=== PATIENT | male | born 1975 | race Two or more races ===

== ENCOUNTER 2020-08-06 17:06 | Emergency (ER) | payer OTHER ==
--- NOTE | 2020-08-06 17:48 | XRAY Report ---
PROCEDURE: Chest 1 View X-Ray INDICATIONS: Chest Pain TECHNIQUE: One view of the chest was acquired. COMPARISON: None FINDINGS: Surgical changes and devices: None. Lungs and pleura: No pleural effusions or pneumothorax. Lungs are clear. Mediastinum: Mediastinal contours appear normal. Heart size is normal. Bones and chest wall: No suspicious bony lesions. Overlying soft tissues appear unremarkable. IMPRESSION: No evidence acute pulmonary process. Reviewed by: Camilo Kan MD on 08/06/2020 4:47 PM [facility] Approved by: Camilo Kan MD on 08/06/2020 4:47 PM [facility] Station ID: [id number]
[2020-08-06 17:55] LABS: BASOPHILS # (AUTO) 0.1 10^3/uL (0.0-0.1); BASOPHILS % (AUTO) 0.7 %; EOSINOPHILS # (AUTO) 0.3 10^3/uL (0.0-0.7); EOSINOPHILS % (AUTO) 3.5 %; HCT - HEMATOCRIT 46.7 % (42.0-52.0); HGB - HEMOGLOBIN 15.3 g/dL (14.0-18.0); LYMPHOCYTES # (AUTO) 2.8 10^3/uL (1.5-3.5); LYMPHOCYTES % (AUTO) 30.8 %; MEAN CORPUSCULAR HEMOGLOBIN 29.5 pg (27.0-31.0); MEAN CORPUSCULAR HGB CONC 32.8 g/dL (32.0-36.0); MEAN CORPUSCULAR VOLUME 90.2 fL (80.0-94.0); MEAN PLATELET VOLUME 8.3 fL (7.4-11.4); MONOCYTES # (AUTO) 0.8 10^3/uL (0.0-1.0); MONOCYTES % (AUTO) 8.7 %; NEUTROPHILS # (AUTO) 5.1 10^3/uL (1.5-6.6); PLT - PLATELET COUNT 302 10^3/uL (130-450); RED BLOOD COUNT 5.18 10^6/uL (4.70-6.10); WHITE BLOOD COUNT 9.1 x10^3/uL (4.8-10.8)
[2020-08-06] MEDS ORDERED: KETOROLAC 60 MG/2 ML VIAL IM STA (18:10)
[2020-08-06 18:25] LABS: ALBUMIN 4.3 g/dL (3.2-5.5); ALBUMIN/GLOBULIN RATIO 1.4 (1.0-2.2); BILIRUBIN,TOTAL 0.9 mg/dL (0.2-1.0); CALCIUM 9.1 mg/dL (8.5-10.3); POTASSIUM 4.2 mmol/L (3.5-5.0); TOTAL PROTEIN 7.3 g/dL (6.7-8.2)
--- NOTE | 2020-08-06 18:28 | ED Physician Documentation ---
PD HPI CHEST PAIN - Stated complaint Stated Complaint: CP - Chief complaint Chief Complaint: Cardiac - History obtained from History obtained from: Patient - History of Present Illness Timing - onset: Yesterday Timing - onset during: Rest Quality: Sharp, Pain Location: Right chest Radiation: No: Jaw, Neck, Back, Abdominal, Left upper extremity, Right upper extremity Improved by: Rest Worsened by: Inspiration, Movement, Palpation Associated symptoms: No: Shortness of air, Diaphoresis, Nausea, Vomiting, Feeling faint / dizzy, General Weakness, Palpitations, Cough Recently seen: Not recently seen - Additional information Additional information: 45-year-old male presents to the emergency department with right-sided anterior chest wall pain. Described as sharp, worse with movement, palpation, breathing. He states that it started after a garbage bin struck him in the back at work. He states he was pushing a cart as well. Took Motrin without relief. No difficulty breathing. No recent surgery. No history of blood clots. No recent travel or immobilization. No history of acute coronary syndrome. No fevers. No chills. Review of Systems Ten Systems: 10 systems reviewed and negative Constitutional: denies: Fever, Chills Nose: denies: Rhinorrhea / runny nose, Congestion Throat: denies: Sore throat Respiratory: denies: Cough GI: denies: Nausea, Vomiting, Diarrhea : denies: Dysuria, Frequency, Hesitancy Skin: denies: Rash Musculoskeletal: denies: Neck pain, Back pain Neurologic: denies: Headache PD PAST MEDICAL HISTORY - Past Medical History Past Medical History: No - Past Surgical History Past Surgical History: No - Present Medications Home Medications: Ambulatory Orders Medication Instructions Recorded Confirmed Bismuth Subsalicylate 1 tab PO PRN PRN 08/06/20 08/06/20 [Pepto-Bismol] Ibuprofen [Motrin] 800 mg PO Q8H PRN #30 tablet 08/06/20 - Allergies Allergies/Adverse Reactions: Allergies Allergy/AdvReac Type Severity Reaction Status Date / Time No Known Drug Allergies Allergy Verified 08/06/20 17:17 - Living Situation Living Arrangement: reports: At home - Social History Does the pt have substance abuse?: No - Family History Family history: reports: Non contributory PD ED PE NORMAL - Vitals Vital signs reviewed: Yes - General General: Alert and oriented X 3, No acute distress, Well developed/nourished - HEENT HEENT: PERRL, Moist mucous membranes - Neck Neck: Supple, no meningeal sign - Cardiac Cardiac: RRR, No murmur, Strong equal pulses, Other (Tender palpation across the right anterior chest wall approximately rib 6, over the costochondral cartilage. No crepitus. No ecchymosis. Reproduces his pain.) - Respiratory Respiratory: No respiratory distress, Clear bilaterally - Abdomen Abdomen: Soft, Non tender, Non distended - Back Back: No spinal TTP - Derm Derm: Warm and dry - Extremities Extremities: No edema, No calf tenderness / cord - Neuro Neuro: Alert and oriented X 3 - Psych Psych: Normal mood, Normal affect Results - Vitals Vitals: Vital Signs - 24 hr 08/06/20 08/06/20 08/06/20 17:14 17:51 19:27 Temperature 36.9 C 36.7 C Heart Rate 77 68 78 Respiratory 20 23 21 Rate Blood Pressure 165/90 H 148/88 H 136/90 H O2 Saturation 98 97 97 Oxygen O2 Source Room air - EKG (time done) 1711 Rate: Rate (enter#) (70) Rhythm: NSR [place]: Normal Intervals: Normal MA QRS: Normal, LVH Ischemia: ST elevation c/w repol - Labs Labs: Laboratory Tests 08/06/20 08/06/20 08/06/20 17:50 17:50 17:50 WBC 9.1 RBC 5.18 Hgb 15.3 Hct 46.7 MCV 90.2 MCH 29.5 MCHC 32.8 RDW 13.0 Plt Count 302 MPV 8.3 Neut # (Auto) 5.1 Lymph # (Auto) 2.8 Richardson # (Auto) 0.8 Eos # (Auto) 0.3 Baso # (Auto) 0.1 Absolute Nucleated RBC 0.00 Nucleated RBC % 0.0 Sodium 135 Potassium 4.2 Chloride 103 Carbon Dioxide 24 Anion Gap 8.0 BUN 25 H Creatinine 1.0 Estimated GFR (MDRD) 81 L Glucose 128 H Calcium 9.1 Total Bilirubin 0.9 AST 30 ALT 49 Alkaline Phosphatase 84 Troponin I High Sens 2.9 Total Protein 7.3 Albumin 4.3 Globulin 3.0 Albumin/Globulin Ratio 1.4 Lipase 38 - Rads (name of study) cxr Radiology: See rad report (no Acute abnormality) rib xray Radiology: Prelim report reviewed, EMP read contemporaneously, See rad report (no Acute abnormality) PD MEDICAL DECISION MAKING - ED course Complexity details: reviewed results, re-evaluated patient, considered differential (No ST elevation PA, no aortic dissection, no PE, no tension pneumothorax, no aortic aneurysm), d/w patient ED course: Patient feels better after Toradol. Has what appears to be musculoskeletal chest wall pain. No evidence of acute coronary syndrome, PE, pneumothorax. No evidence of rib fracture. We will continue supportive care and have him follow- up with his doctor for further care. Patient counseled regarding signs and symptoms for which I believe and urgent re-evaluation would be necessary. Patient with good understanding of and agreement to plan and is comfortable going home at this time This document was made in part using voice recognition software. While efforts are made to proofread this document, sound alike and grammatical errors may occur. Departure - Departure Disposition: 01 Home, Self Care Clinical Impression: Chest wall pain Condition: Good Instructions: ED Chest Pain Costochondritis Follow-Up: your,doctor in 1 week [Other] Prescriptions: Ibuprofen [Motrin] 800 mg PO Q8H PRN #30 tablet PRN Reason: PAIN &/OR FEVER Comments: Follow-up with your doctor for further care. Return if you worsen. You can use the Motrin as needed for pain at home. This should improve over the next few days. Ice and heat may help as well. Discharge Date/Time: 08/06/20 19:44
--- NOTE | 2020-08-06 19:07 | XRAY Report ---
PROCEDURE: Ribs 2 View RT INDICATIONS: R anterior rib pain TECHNIQUE: 3 views of the right ribs were acquired. COMPARISON: Chest x-ray 08/06/2020 FINDINGS: Surgical changes and devices: None. Bones and chest wall: No fractures or dislocations. No suspicious bony lesions. Overlying soft tis sues appear unremarkable. Lungs and pleura: The visualized lung appears clear. No pleural effusions or pneumothorax are visib le. IMPRESSION: No visualized acute fracture or dislocation. However, occult injury cannot be excluded. Recommend nayla rt interval imaging follow-up in 7-10 days as clinically indicated for additional evaluation. Reviewed by: Dorinda Todd MD on 08/06/2020 7:06 PM PST Approved by: Dorinda Todd MD on 08/06/2020 7:06 PM PST Station ID: [id number]
[2020-08-06 19:27] VITALS: BP 136/90
== END 2020-08-06 19:44 | disposition home or self-care (01) ==
LOC: ED 17:06
DX: R07.89 Other chest pain (principal); W22.8XXA Striking against or struck by other objects, initial encounter; Y99.0 Civilian activity done for income or pay
CPT/HCPCS: 36415; 80053; 83690; 84484; 85025; 93005; 96372; 99284

== ENCOUNTER 2020-08-10 16:09 | Emergency (ER) | payer OTHER ==
[2020-08-10 16:21] VITALS: BP 168/111
--- NOTE | 2020-08-10 16:48 | ED Physician Documentation ---
History of Present Illness - Stated complaint Stated Complaint: DR AGUILA - Chief complaint Chief Complaint: General - Additonal information Additional information: 45-year-old male presents to the emergency department requesting for a 2-week e xcuse from work. He was initially seen in this emergency department 08/06/2020 with right sided anterior chest wall pain. He reportedly was struck from behind with a garbage bin at work. He describes the pain as sharp and certainly worse with movement and very deep breathing. He has been taking Motrin with mild relief of the pain. He has no hemoptysis or labored breathing. At the last ER visit he did not claim a Workmen's Comp/Labor and Industries. injury. I did discuss with him that in order to have the recent ER visit and this visit evaluated by [facility] [facility] [employer] he would need to fill out the L&I paperwork. forms which have been completed. This gentleman has no history of blood clots or DVT. No history of travel or immobilization. No history of acute coronary syndrome. No fevers cough chills or hemoptysis. Review of Systems Constitutional: denies: Fever, Chills Eyes: reports: Reviewed and negative Ears: reports: Reviewed and negative Nose: reports: Reviewed and negative Throat: reports: Reviewed and negative Cardiac: reports: Chest pain / pressure. denies: Palpitations, Pedal edema, Calf pain Respiratory: denies: Dyspnea, Cough, Hemoptysis, Wheezing GI: denies: Abdominal Pain, Abdominal Swelling, Nausea, Vomiting : denies: Dysuria, Frequency Skin: denies: Rash, Lesions Musculoskeletal: denies: Neck pain, Back pain, Extremity pain PD PAST MEDICAL HISTORY - Past Medical History Past Medical History: Yes Cardiovascular: None Respiratory: None Neuro: None Endocrine/Autoimmune: None GI: None : None HEENT: None Psych: None Musculoskeletal: None Derm: None - Past Surgical History Past Surgical History: No - Present Medications Home Medications: Ambulatory Orders Medication Instructions Recorded Confirmed Bismuth Subsalicylate 1 tab PO PRN PRN 08/06/20 08/10/20 [Pepto-Bismol] Ibuprofen [Motrin] 800 mg PO Q8H PRN #30 tablet 08/06/20 08/10/20 - Allergies Allergies/Adverse Reactions: Allergies Allergy/AdvReac Type Severity Reaction Status Date / Time No Known Drug Allergies Allergy Verified 08/10/20 16:13 - Social History Does the pt smoke?: Yes Smoking Status: Current every day smoker Does the pt drink ETOH?: Yes Does the pt have substance abuse?: No - Immunizations Immunizations are current?: No PD ED PE EXPANDED - General General: Alert, No acute distress, Well developed/nourished - Cardiac Cardiac: Regular Rate, Regular Rhythm, Radial strong equal, Pedal strong equal, Cap refill < 2 sec - Respiratory Respiratory: Clear to ausultation kings, Other (Focal tenderness just above the nipple midline anterior chest without ecchymosis or bruising. Patient able to take full deep breaths without difficulty). No: Distress, Labored - Abdomen Abdomen: Normal Bowel sounds. No: Tender to palpation - Back Back: Normal exam. No: Vertebral tenderness, Soft tissue tenderness - Derm Derm: Normal color, Warm and dry - Extremities Extremities: Normal. No: Deformity, Tenderness, Pedal edema bilateral, Right calf TTP/cord, Left calf TTP/cord Results - Vitals Vitals: Vital Signs - 24 hr 08/10/20 16:13 Temperature 36.9 C Heart Rate 79 Respiratory 18 Rate Blood Pressure 168/111 H O2 Saturation 97 Oxygen O2 Source Room air - Rads (name of study) CXR Radiology: Final report received (mp acute process) PD MEDICAL DECISION MAKING - ED course Complexity details: reviewed results, re-evaluated patient, d/w patient ED course: 45-year-old male returns emergency department with acute right anterior chest wall pain after he was hit by a garbage bin while at work 08/05/2020. He was seen in this emergency department 08/06/2020 for evaluation of this chest wall pain. He did not understand that he needed to report this as a labor and industries claim to the provider at that time therefore he has done it today. On exam he does have point tenderness in the right anterior chest wall. He is PERC negative. Repeat chest x-ray today shows no acute cardiopulmonary process rib fractures or pulmonary contusion. He does have mild to moderate relief of pain. Patient will be given an additional 2 days off work with instructions to follow-up with [facility] for further labor and industries evaluation[id number]. Appropriate paperwork completed Departure - Departure Disposition: 01 Home, Self Care Clinical Impression: Chest wall pain Condition: Stable Record reviewed to determine appropriate education?: Yes Instructions: ED Contusion Chest Wall Follow-Up: [facility] [Provider Group] Comments: The x-ray of your chest is normal. However after getting hit by the garbage bin you most likely have contusion or bruising of the chest wall. This can take a little bit to get better. I do recommend that you continue to take the ibuprofen. You are excused from work for the next 2 days. However it is important that you follow-up with a labor and industries provider. On August 12 I would like you to go to [facility] at their walk-in clinic to be reevaluated for your chest wall pain. Please let them know that this is a labor and industries accident [id number]
--- NOTE | 2020-08-10 17:27 | XRAY Report ---
PROCEDURE: Chest 2 View X-Ray INDICATIONS: Cough TECHNIQUE: 2 view(s) of the chest. COMPARISON: 08/06/2020 FINDINGS: Surgical changes and devices: None. Lungs and pleura: No pleural effusions or pneumothorax. Lungs are clear. Mediastinum: Mediastinal contours are normal. Heart size is normal. Bones and chest wall: No suspicious bony abnormalities. Soft tissues appear unremarkable. IMPRESSION: No acute cardiopulmonary process demonstrated radiographically. Reviewed by: Mich Antunez MD on 08/10/2020 5:26 PM PDT Approved by: Mich Antunez MD on 08/10/2020 5:26 PM PDT Station ID: [id number]
== END 2020-08-10 18:24 | disposition home or self-care (01) ==
LOC: ED 16:09
DX: R07.9 Chest pain, unspecified (principal); W22.8XXA Striking against or struck by other objects, initial encounter; Y99.0 Civilian activity done for income or pay; F17.200 Nicotine dependence, unspecified, uncomplicated
CPT/HCPCS: 1040M; 99282; 99283

== ENCOUNTER 2020-12-31 13:30 | Outpatient (CLI) | payer OTHER ==
[2020-12-31 16:28] LABS: BASOPHILS % (AUTO) 0.5 %; EOSINOPHILS # (AUTO) 0.1 10^3/uL (0.0-0.7); EOSINOPHILS % (AUTO) 0.9 %; HCT - HEMATOCRIT 44.4 % (42.0-52.0); HGB - HEMOGLOBIN 14.4 g/dL (14.0-18.0); LYMPHOCYTES # (AUTO) 1.6 10^3/uL (1.5-3.5); LYMPHOCYTES % (AUTO) 27.5 %; MEAN CORPUSCULAR HEMOGLOBIN 28.9 pg (27.0-31.0); MEAN CORPUSCULAR HGB CONC 32.4 g/dL (32.0-36.0); MEAN PLATELET VOLUME 8.7 fL (7.4-11.4); MONOCYTES # (AUTO) 0.6 10^3/uL (0.0-1.0); MONOCYTES % (AUTO) 10.4 %; NEUTROPHILS # (AUTO) 3.4 10^3/uL (1.5-6.6); NEUTROPHILS % (AUTO) 60.3 %; PLT - PLATELET COUNT 292 10^3/uL (130-450); RED BLOOD COUNT 4.99 10^6/uL (4.70-6.10); RED CELL DISTRIBUTION WIDTH 13.9 % (12.0-15.0); WHITE BLOOD COUNT 5.7 x10^3/uL (4.8-10.8)
[2020-12-31 16:37] LABS: ALBUMIN 4.2 g/dL (3.2-5.5); ALBUMIN/GLOBULIN RATIO 1.4 (1.0-2.2); BILIRUBIN,TOTAL 0.6 mg/dL (0.2-1.0); CREATININE 0.7 mg/dL (0.6-1.2); POTASSIUM 3.7 mmol/L (3.5-5.0); TOTAL PROTEIN 7.3 g/dL (6.7-8.2)
== END 2020-12-31 23:59 | disposition home or self-care (01) ==
LOC: LAB.N 13:30
PROVIDERS: ATTEND Nurse Practitioner
DX: R21 Rash and other nonspecific skin eruption (principal); Z20.822 Contact with and (suspected) exposure to COVID-19
CPT/HCPCS: 36415; 80053; 85025

== ENCOUNTER 2021-09-16 12:19 | Outpatient (CLI) | payer OTHER ==
--- NOTE | 2021-09-16 13:33 | XRAY Report ---
PROCEDURE: Hand 2 View LT INDICATIONS: CRUSHING INJURY OF LEFT HAND TECHNIQUE: 2 views of the hand(s) acquired. COMPARISON: None FINDINGS: Bones: No fractures or dislocations. No suspicious bony lesions. Soft tissues: No suspicious soft tissue calcifications. Generalized soft tissue swelling IMPRESSION: Soft tissue swelling without fracture or foreign body Reviewed by: Olivier Lawton MD on 09/16/2021 12:32 PM [facility] Approved by: Olivier Lawton MD on 09/16/2021 12:32 PM [facility] Station ID: [id number]
== END 2021-09-16 23:59 | disposition home or self-care (01) ==
LOC: DI.N 12:19
PROVIDERS: ATTEND Nurse Practitioner
DX: S67.22XA Crushing injury of left hand, initial encounter (principal); R93.6 Abnormal findings on diagnostic imaging of limbs; R93.89 Abnormal findings on diagnostic imaging of other specified body structures